=== PATIENT | male | born 1960 | race Caucasian/White ===

== ENCOUNTER 2016-06-12 09:36 | Emergency (ER) | payer OTHER ==
[~2016-06-12] VITALS: Ht 179.1 cm; Wt 83.9 kg
[~2016-06-12 09:36] MED LIST: ABILIFY20 M1 PO; AMOXICILLIN500 M3 PO; ATRIPLA 600 MG-1 TAB PO; CYCLOBENZAPRINE5 M2 PO; DOLOPHINE10 MG PO; GABAPENTIN400 M2 PO; GUAIFENESIN-COD10 ML PO; HYDROXYZINE HYD25 MG PO; HYDROXYZINE PAM25 M1 PO; HYDROXYZINE PAM50 M1 PO; INDOMETHACIN50 MG PO; METHADONE10 MG/5 M2 PO; NICODERM C14 MG/24 H TOP; PAROXETINE20 MG PO; PROAIR HFA0.09 MG/Ac INH; RISPERIDONE1 MG PO; RISPERIDONE2 MG PO; TRAMADOL HCL50 MG PO; XANAX0.5 MG PO; ZITHROMAX 500M500 MG PO
--- NOTE | 2016-06-12 09:52 | ED GI/GU/ABDOMINAL COMPLAINT ---
History of Present Illness General Chief Complaint: Nausea, Vomiting, Diarrhea Stated Complaint: NVD,HEADACHE, X 2 DAYS Source: patient Exam Limitations: no limitations Vital Signs & Intake/Output Vital Signs & Intake/Output Vital Signs Date Time Temp Pulse Resp B/P Pulse O2 O2 Flow FiO2 Ox Delivery Rate 06/12 1001 Room Air Room Air 06/12 0939 97.2 76 20 147/82 94 Room Air Allergies Coded Allergies: NO KNOWN ALLERGIES (06/12/16) Reconcile Medications Amoxicillin 500 MG TABLET 1 TAB PO TID BRONCHITIS Aripiprazole (Abilify) 20 MG TABLET 1 TAB PO DAILY MENTAL HEALTH (Reported) Efavirenz/Emtricitabine/Teno (Atripla) 1 TAB TAB 1 TAB PO QPM HIV (Reported) Gabapentin 400 MG CAPSULE 1 CAP PO QPM NERVE PAIN (Reported) HYDROXYZINE HCL (Hydroxyzine Hydrochloride) 25 MG TABLET 1 TAB PO QPM AGITATION (Reported) Hydroxyzine Pamoate 50 MG CAPSULE 1 CAP PO TID ITCHING (Reported) Methadone HCl 10 MG/5 ML SOLUTION 60 MG PO DAILY MENTAL HEALTH (Reported) Naproxen 500 MG TABLET 1 TAB PO BID PRN PAIN TAKE WITH FOOD Ondansetron (Zofran Odt) 4 MG TAB.RAPDIS 1 TAB PO Q6 PRN NAUSEA PAROXETINE HCL (Paroxetine) 20 MG TABLET 1 TAB PO DAILY DEPRESSION (Reported) Risperidone 1 MG TABLET 1 TAB PO QPM mood (Reported) Robitussin AC (Guaifenesin-Codeine Syrup) 200 MG-20 MG/10 ML LIQUID 10 ML PO Q6P PRN COUGH Triage Note: TRIAGE: PT TO ER "POUNDING HEADACHE, FEEL NAUSEAS, FEEL LIKE I GOTTA PUKE. TIRED." ONSET COUPLE DAYS AGO. TRIED MOTRIN WITH NO RELIEF. Triage Nurses Notes Reviewed? yes Onset: Gradual Duration: day(s): (2) Timing: recent history HPI: This is a 56 year old male with history of HIV on a trip last, last viral load undetectable who presents to the ED with nausea, headache and vomiting since monday. He tried taking motrin without relief. No trauma or blurred vision. He last vomited yesterday. Vomitus is nonbloody. Denies any fever chills or abdominal pain. Denies any diarrhea. No sick contacts or recent travel. Past History Travel History Traveled to [place] past 21 day No Medical History Any Pertinent Medical History? 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 No Review of Systems Review of Systems Constitutional: Denies: chills, fever. EENTM: Reports: nasal congestion. Respiratory: Denies: cough, short of breath. Cardiovascular: Denies: chest pain, palpitations. GI: Reports: nausea, vomiting. Denies: abdominal pain. Genitourinary: Reports: no symptoms. Musculoskeletal: Reports: no symptoms. Skin: Reports: no symptoms. Neurological/Psychological: Reports: headache. Hematologic/Endocrine: Reports: no symptoms. Immunologic/Allergic: Reports: no symptoms. All Other Systems: Reviewed and Negative Physical Exam Physical Exam General Appearance: well developed/nourished, alert, awake, mild distress Head: atraumatic, normal appearance Eyes: Bilateral: normal appearance, PERRL, EOMI. Ears, Nose, Throat, Mouth: hearing grossly normal, moist mucous membrane Neck: normal inspection, supple, full range of motion Respiratory: normal breath sounds, chest non-tender, no respiratory distress Cardiovascular: regular rate/rhythm Peripheral Pulses: 2+ radial (R), 2+ radial (L) Gastrointestinal: normal bowel sounds, soft, non-tender Back: normal inspection, normal range of motion Extremities: normal range of motion Neurologic/Psych: no motor/sensory deficits, awake, alert, oriented x 3, normal gait, NEGATIVE KERNIG, NEGATIVE BRUDZINSKI Skin: intact, normal color, warm/dry Core Measures ACS in differential dx? No Severe Sepsis Present: No Septic Shock Present: No Progress Differential Diagnosis: migraine headache, viral cephalgia, SINUSITIS Plan of Care: Current Medications Sig/Analilia Start time Last Medication Dose Stop Time Status Admin Ketorolac 60 MG ONCE ONE 06/12 1045 AC Tromethamine 06/12 104 (Toradol) Ondansetron HCl 4 MG ONCE ONE 06/12 1045 AC (Zofran) 06/12 104 Initial ED EKG: none Departure Departure Time of Disposition: 1130 Disposition: HOME OR SELF CARE Condition: Stable Clinical Impression Primary Impression: Nausea and vomiting Referrals: ERASMO LAZAR,LD (PCP/Family) Additional Instructions: Take the zofran and naproxen as directed. Follow up with your doctor. Return as needed. Departure Forms: Customer Survey General Discharge Information Prescriptions: Current Visit Scripts Ondansetron (Zofran Odt) 1 TAB PO Q6 PRN NAUSEA #20 TAB Naproxen 1 TAB PO BID PRN PAIN #15 TAB TAKE WITH FOOD
[2016-06-12] MEDS ORDERED: ZOFRAN ODT4 M1 PO (11:31)
[2016-06-12] MEDS ORDERED: NAPROXEN500 M2 PO (11:31)
[2016-06-12 11:34] VITALS: BP 120/67
== END 2016-06-12 11:36 ==
LOC: ERH 09:36
DX: R11.2 Nausea with vomiting, unspecified (principal)
CPT/HCPCS: 96372; J1885; J3101

== ENCOUNTER 2016-08-16 06:06 | Emergency (ER) | payer OTHER ==
[~2016-08-16] VITALS: Ht 172.7 cm; Wt 83.9 kg
[~2016-08-16 06:06] MED LIST changes: +NAPROXEN500 M2 PO; +ZOFRAN ODT4 M1 PO
--- NOTE | 2016-08-16 06:25 | ED GI/GU/ABDOMINAL COMPLAINT ---
History of Present Illness General Chief Complaint: Nausea, Vomiting, Diarrhea Stated Complaint: X COMP,DIARRHEA,ABD,PAIN,VO Source: patient Exam Limitations: no limitations Vital Signs & Intake/Output Vital Signs & Intake/Output Vital Signs Date Time Temp Pulse Resp B/P B/P Pulse O2 O2 Flow FiO2 Mean Ox Delivery Rate 08/16 0627 Room Air 08/16 0620 97.6 105 18 143/77 95 Room Air Allergies Coded Allergies: NO KNOWN ALLERGIES (06/12/16) Triage Nurses Notes Reviewed? yes Onset: Gradual Duration: day(s):, constant Timing: recent history Quality/Severity: cramping Location: generalized abdomen Radiation: no radiation Activities at Onset: none Modifying Factors: Worsens With: defecating, vomiting. Associated Symptoms: abdominal pain, diarrhea, nausea/vomiting HPI: 48-year-old gentleman history of well-controlled HIV presents with five-day history of green watery diarrhea nausea and vomiting. He states that last night he had approximately 4-5 episodes of loose watery green stools. He also had several episodes of vomiting. He has no fever chills dysuria chest pain or shortness of breath. He has been compliant with his HIV regimen and by his report has an undetectable viral load and her robust T-cell count. Prior to the onset of his symptoms, he notes that he may have eaten some undercooked meat. (ANTONIO LAZAR,TAL Sin) Reconcile Medications Aripiprazole (Abilify) 20 MG TABLET 1 TAB PO DAILY MENTAL HEALTH (Reported) Gabapentin 400 MG CAPSULE 1 CAP PO QPM NERVE PAIN (Reported) Hydroxyzine Pamoate 50 MG CAPSULE 1 CAP PO TID ITCHING (Reported) Methadone HCl 10 MG/5 ML SOLUTION 60 MG PO DAILY MENTAL HEALTH (Reported) Metronidazole (Flagyl) 500 MG TABLET 1 TAB PO TID diarrhea PAROXETINE HCL (Paroxetine) 20 MG TABLET 1 TAB PO DAILY DEPRESSION (Reported) Risperidone 1 MG TABLET 1 TAB PO QPM mood (Reported) (MAYRA LAZAR,IRINA) Past History Medical History Any Pertinent Medical History? 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 No (TAL ALVAREZ MD) Review of Systems Review of Systems Constitutional: Reports: no symptoms. EENTM: Reports: no symptoms. Respiratory: Reports: no symptoms. Cardiovascular: Reports: no symptoms. GI: Reports: no symptoms. Genitourinary: Reports: no symptoms. Musculoskeletal: Reports: no symptoms. Skin: Reports: no symptoms. Neurological/Psychological: Reports: no symptoms. Hematologic/Endocrine: Reports: no symptoms. Immunologic/Allergic: Reports: no symptoms. All Other Systems: Reviewed and Negative (TAL ALVAREZ MD) Physical Exam Physical Exam General Appearance: well developed/nourished, mild distress Head: atraumatic, normal appearance Eyes: Bilateral: normal appearance. Ears, Nose, Throat, Mouth: hearing grossly normal Neck: normal inspection, supple, full range of motion Respiratory: normal breath sounds, chest non-tender, no respiratory distress, quiet respiration, lungs clear Cardiovascular: regular rate/rhythm Gastrointestinal: normal bowel sounds, soft, diffuse right and left sided tenderness to palpation. no rebound. no guarding. Back: normal inspection Extremities: normal range of motion Neurologic/Psych: no motor/sensory deficits, awake, alert, oriented x 3 Skin: intact, normal color, warm/dry Core Measures ACS in differential dx? No Severe Sepsis Present: No Septic Shock Present: No (TAL ALVAREZ MD) Progress Differential Diagnosis: appendicitis, cholecystitis, diverticulitis, gastritis, hepatitis, pancreatitis Plan of Care: Orders Procedure Date/time Status TROPONIN LEVEL 08/16 617 Complete LIPASE 08/16 617 Complete HEPATIC FUNCTION PANEL 08/16 617 Complete CBC WITHOUT DIFFERENTIAL 08/16 617 Complete BASIC METABOLIC PANEL 08/16 617 Complete AMYLASE 08/16 617 Complete EKG 08/16 617 Active Laboratory Tests 08/16/16 0639: Anion Gap 14, Estimated GFR > 60, BUN/Creatinine Ratio 18.2, Glucose 110 H, Calcium 9.4, Total Bilirubin 1.1, Direct Bilirubin 0.4, AST 34, ALT 23, Alkaline Phosphatase 87, Troponin I < 0.01, Total Protein 8.7 H, Albumin 4.7, Amylase 75 , Lipase 132, CBC w Diff NO MAN DIFF REQ, RBC 6.42 H, MCV 66.3 L, MCH 20.7 L, RDW 15.8 H, MPV 8.7, Gran % 64.4, Lymphocytes % 27.9, Monocytes % 7.1, Eosinophils % 0.6, Basophils % 0 L, Absolute Granulocytes 3.4, Absolute Lymphocytes 1.5, Absolute Monocytes 0.4, Absolute Eosinophils 0, Absolute Basophils 0, PUBS MCHC 31.3 L 7:15 AM PATIENT SIGNED OUT TO ME BY DR ALVAREZ. PENDING CT SCAN. PATIENT WILL FOLLOW UP WITH OUTPATIENT STOOL CULTURE. REQUESTING ABX, CALLED INTO PHARMACY. (IRINA NUNEZ MD) Diagnostic Imaging: Viewed by Me: CT Scan. Discussed w/RAD: CT Scan. Initial ED EKG: normal axis, normal intervals, normal p-waves, normal QRS complex, normal sinus rhythm Hand-Off Endorsed To: IRINA NUNEZ MD Endorsed Time: 0700 Pending: CT, labs (ANTONIO LAZAR,TAL Sin) Radiology Impression: PATIENT: MALLY ORTIZ PRESENT AGE: 56 PATIENT ACCOUNT NO: [id number] : 56 LOCATION: [facility] ORDERING PHYSICIAN: TAL ALVAREZ MD SERVICE DATE: 08/16/16 EXAM TYPE: CAT - CT ABD & PELVIS W/O IV CONTRAS EXAMINATION: CT ABDOMEN AND PELVIS WITHOUT CONTRAST CLINICAL INFORMATION: Right and left abdominal tenderness. Question colitis. COMPARISON: CT abdomen pelvis dated 01/27/2016. TECHNIQUE: Multidetector volumetric imaging was performed from the superior aspect of the liver through the pubic symphysis. Sagittal and coronal reformatted images were obtained on the technologist's workstation. DLP: 332.46 mGy-cm FINDINGS: LUNG BASES: There are dependent changes at the lung bases. LIVER, GALLBLADDER, AND BILIARY TREE: The unenhanced liver is a mildly enlarged. There is a small calcified granuloma within the right hepatic lobe medially. No intrahepatic biliary ductal dilation. The gallbladder is physiologically distended. No evidence of acute cholecystitis. PANCREAS: The unenhanced pancreas is unremarkable. SPLEEN: The spleen is enlarged measuring up to 17 cm in length. ADRENAL GLANDS: There is no adrenal gland mass. KIDNEYS AND URETERS: The unenhanced kidneys are normal in size. No hydronephrosis. There is an ill- defined low-attenuation lesion within the lower pole of the left kidney measuring approximately 8 mm, likely representing cysts. BLADDER: The partially distended urinary bladder is unremarkable. GASTROINTESTINAL TRACT: The unopacified small bowel and colon are normal in caliber. There is no evidence of mural thickening or pericolonic inflammation. The appendix is normal. ABDOMINAL WALL: There is a small fat-containing umbilical hernia. LYMPH NODES: Similar to the prior examination, there are numerous periportal and portacaval lymph nodes, measuring up to 1.2 cm in short axis. There are subcentimeter mesenteric lymph nodes. VASCULAR: No abdominal aortic aneurysm. There is atherosclerotic calcification throughout the abdominal aorta. PELVIC VISCERA: The prostate gland is mildly enlarged. OSSEOUS STRUCTURES: There is a grade 1 retrolisthesis of L5 in relation to S1. There is moderate narrowing of the L5-S1 intervertebral disc space. There is minimal retrolisthesis of L4 in relation to L5. There is vacuum disc phenomenon at this level. There are endplate sclerotic changes as well as anterior osteophytosis at this level. Intact appearance of the two long lag screws that provide fixation across the sacroiliac joints. IMPRESSION: 1. No CT evidence of colitis. 2. Periportal and portacaval lymphadenopathy, similar to what was seen on prior examination. 3. Mild hepatomegaly. 4. Marked splenomegaly. DICTATED BY: JUAN MCDONALD MD DATE/TIME DICTATED:08/16/16719 FILM HISTORIAN:AMY DATE/TIME TRANSCRIBED:08/16/16719 CONFIDENTIAL, DO NOT COPY WITHOUT APPROPRIATE AUTHORIZATION. <Electronically signed in Other Vendor System> SIGNED BY: JUAN MCDONALD MD 08/16/16 0742 (IRINA NUNEZ MD) Departure Departure Condition: Stable Clinical Impression Primary Impression: Abdominal pain Referrals: LD ZIMMERMAN MD (PCP/Family) (ANTONIO LAZAR,TAL Sin) Departure Time of Disposition: 756 Disposition: HOME OR SELF CARE Additional Instructions: Submit your stool sample as discussed and follow up with your doctor. Take the flagyl as directed. Return as needed. Departure Forms: Customer Survey General Discharge Information Prescriptions: Current Visit Scripts Metronidazole (Flagyl) 1 TAB PO TID #30 TAB (MAYRA LAZAR,IRINA)
[2016-08-16 06:50] LABS: ABSOLUTE BASOPHIL COUNT 0 /CUMM (0.0-0.2); ABSOLUTE EOSINOPHIL COUNT 0 /CUMM (0.0-0.7); MEAN CORPUSCULAR HGB CONC 31.3 G/DL (33.0-37.0)
[2016-08-16 06:56] LABS: ABSOLUTE GRANULOCYTE CT 3.4 /CUMM (1.4-6.5); ABSOLUTE LYMPH COUNT 1.5 /CUMM (1.2-3.4); ABSOLUTE MONOCYTE COUNT 0.4 /CUMM (0.10-0.60); BASOPHIL % 0 % (0.0-2.0); EOSINOPHIL % 0.6 % (0-5); GRANULOCYTE % 64.4 % (42.2-75.2); HEMATOCRIT 42.6 % (42-52); MEAN CORPUSCULAR HGB 20.7 PG (27.0-31.0); MEAN CORPUSCULAR VOLUME 66.3 FL (80.0-94.0); MEAN PLATELET VOLUME 8.7 FL (7.4-10.4); RBC DISTRIBUTION WIDTH 15.8 % (11.5-14.5); RED BLOOD CELL CT 6.42 /CUMM (4.70-6.10); WHITE BLOOD CELL COUNT 5.4 /CUMM (4.8-10.8)
[2016-08-16 07:04] LABS: PLATELET COUNT 80 /CUMM (130-400)
--- NOTE | 2016-08-16 07:42 | CT SCAN REPORT ---
EXAMINATION: CT ABDOMEN AND PELVIS WITHOUT CONTRAST CLINICAL INFORMATION: Right and left abdominal tenderness. Question colitis. COMPARISON: CT abdomen pelvis dated 01/27/2016. TECHNIQUE: Multidetector volumetric imaging was performed from the superior aspect of the liver through the pubic symphysis. Sagittal and coronal reformatted images were obtained on the technologist's workstation. DLP: 332.46 mGy-cm FINDINGS: LUNG BASES: There are dependent changes at the lung bases. LIVER, GALLBLADDER, AND BILIARY TREE: The unenhanced liver is a mildly enlarged. There is a small calcified granuloma within the right hepatic lobe medially. No intrahepatic biliary ductal dilation. The gallbladder is physiologically distended. No evidence of acute cholecystitis. PANCREAS: The unenhanced pancreas is unremarkable. SPLEEN: The spleen is enlarged measuring up to 17 cm in length. ADRENAL GLANDS: There is no adrenal gland mass. KIDNEYS AND URETERS: The unenhanced kidneys are normal in size. No hydronephrosis. There is an ill-defined low-attenuation lesion within the lower pole of the left kidney measuring approximately 8 mm, likely representing cysts. BLADDER: The partially distended urinary bladder is unremarkable. GASTROINTESTINAL TRACT: The unopacified small bowel and colon are normal in caliber. There is no evidence of mural thickening or pericolonic inflammation. The appendix is normal. ABDOMINAL WALL: There is a small fat-containing umbilical hernia. LYMPH NODES: Similar to the prior examination, there are numerous periportal and portacaval lymph nodes, measuring up to 1.2 cm in short axis. There are subcentimeter mesenteric lymph nodes. VASCULAR: No abdominal aortic aneurysm. There is atherosclerotic calcification throughout the abdominal aorta. PELVIC VISCERA: The prostate gland is mildly enlarged. OSSEOUS STRUCTURES: There is a grade 1 retrolisthesis of L5 in relation to S1. There is moderate narrowing of the L5-S1 intervertebral disc space. There is minimal retrolisthesis of L4 in relation to L5. There is vacuum disc phenomenon at this level. There are endplate sclerotic changes as well as anterior osteophytosis at this level. Intact appearance of the two long lag screws that provide fixation across the sacroiliac joints. IMPRESSION: 1. No CT evidence of colitis. 2. Periportal and portacaval lymphadenopathy, similar to what was seen on prior examination. 3. Mild hepatomegaly. 4. Marked splenomegaly.
[2016-08-16] MEDS ORDERED: FLAGYL500 MG PO (07:59)
[2016-08-16 08:02] VITALS: BP 107/57
== END 2016-08-16 08:09 ==
LOC: ERH 06:06
PROVIDERS: Pediatrics
DX: R10.84 Generalized abdominal pain (principal); B20 Human immunodeficiency virus [HIV] disease
CPT/HCPCS: 74176; 93005; 93010; 96361; 96374; 96375; J2405